=== PATIENT | female | born 1995 | race Caucasian/White ===

== ENCOUNTER 2025-05-08 02:39 | Emergency (ER) | payer SELFPAY ==
[2025-05-08 03:28] LABS: #Basophils 0.1 thou/uL (0.0-0.2); #Eosinophils 0.0 thou/uL (0.0-0.7); #Lymphocytes 1.8 thou/uL (1.20-3.40); #Monocytes 0.6 thou/uL (0.11-0.59); #Neutrophils 12.1 thou/uL (1.40-6.50); %Basophils 0.6 % (0.0-1.0); %Eosinophils 0.0 % (0.0-10.0); %Lymphocytes 12.5 % (21.0-51.0); %Monocytes 4.0 % (0.0-10.0); %Neutrophils 82.8 % (42.0-75.0); Hematocrit 36.2 % (36.0-47.0); Hemoglobin 12.6 g/dL (12.0-16.0); Mean Corpuscular Hemoglobin 32.1 pg (27.0-31.0); Mean Corpuscular Volume 92.0 fl (78.0-98.0); Platelet Count 345 10x3/uL (130-400); Red Blood Cell (RBC) Count 3.94 mill/uL (4.20-5.40); White Blood Cell (WBC) Count 14.6 10x3/uL (4.8-10.8)
[2025-05-08] MEDS ORDERED: Droperidol 5 MG/2 ML VIAL ONE (03:29)
[2025-05-08 03:41] LABS: BHCG - Serum Negative (NEGATIVE); Pregs Control Background? CLEAR/WHITE (CLR/WHITE); Pregs Control Bar Appear? YES (CONTROL BAR)
[2025-05-08 03:48] LABS: Acetaminophen Less than 10 mcg/mL (Less than 10); Salicylate Less than 8.0 mg/dL (Less than 8.0)
[2025-05-08 03:50] LABS: ALT (SGPT) 11 U/L (Less than 34); AST (SGOT) 28 U/L (11-34); Albumin 4.2 g/dL (3.1-4.5); Alkaline Phosphatase 55 U/L (40-110); Anion Gap 17 mmol/L (10-20); BUN (Urea Nitrogen) 10 mg/dL (7.0-18.7); Bilirubin, Total 0.5 mg/dL (0.3-1.2); Calc. Creatinine Clearance 0 mL/min (70-130); Calcium 8.4 mg/dL (7.8-10.44); Carbon Dioxide 18 mmol/L (22-29); Chloride 110 mmol/L (98-107); Globulin 3.1 g/dL (2.4-3.5); Glucose 109 mg/dL (70-105); Potassium 3.9 mmol/L (3.5-5.1); Sodium 141 mmol/L (136-145)
[2025-05-08 03:57] LABS: Control Line Color Pink/Red Line (Pink/Red); HIV-1/2 Antibodies Non Reactive (NonReactive)
[2025-05-08 05:29] LABS: Cocaine Metabolite Screen Negative (Negative); THC/Cannabinoid Screen PRELIM POSITIVE (Negative); Tricyclic Screen Negative (Negative)
[2025-05-08] MEDS ORDERED: Iopamidol 370 76% 100 ML VIAL ONE (09:00)
[2025-05-08 12:44] LABS: Hep B Surf Ag NONREACTIVE S/CO (NonReactive); Hep C IgG Ab NONREACTIVE S/CO (NonReactive); Hep C Index 0.09 S/CO (0-0.79)
== END 2025-05-08 09:01 | disposition home or self-care (01) ==
LOC: MADERS 02:39
DX: S80.212A Abrasion, left knee, initial encounter (principal); S80.211A Abrasion, right knee, initial encounter; F43.0 Acute stress reaction; F30.9 Manic episode, unspecified; M79.7 Fibromyalgia; R56.9 Unspecified convulsions; R52 Pain, unspecified; F17.200 Nicotine dependence, unspecified, uncomplicated; W22.8XXA Striking against or struck by other objects, initial encounter
CPT/HCPCS: 70450; 70486; 71260; 72125; 74177; 80053; 80306; 80307; 84703; 85025; 86703; 86803; 87340; 93005; 94760; 96374; 96375; J1790; J2060; Q9967